=== PATIENT | female | born 1950 | race Caucasian/White ===

== ENCOUNTER 2019-05-20 14:51 | Inpatient (IN) | payer MEDICARE, BC ==
[~2019-05-20] VITALS: Ht 167.6 cm; Wt 90.1 kg
[2019-05-20 14:57] VITALS: BP 129/56
[2019-05-20] MEDS ORDERED: METFORMIN HCL500 MG PO (15:08)
[2019-05-20] MEDS ORDERED: NORVASC10 MG PO (15:09)
[2019-05-20] MEDS ORDERED: CELEXA40 MG PO (15:09)
[2019-05-20] MEDS ORDERED: TRAZODONE HCL100 MG PO (15:09)
[2019-05-20] MEDS ORDERED: LISINOPRIL40 MG PO (15:10)
[2019-05-20] MEDS ORDERED: ZOCOR20 MG PO (15:10)
[2019-05-20 16:13] LABS: ABSOLUTE EOSINOPHILS 0.1 thou/uL (0.0-0.7); ABSOLUTE LYMPHOCYTES 1.2 thou/uL (0.8-5.3); ABSOLUTE MONOCYTES 0.4 thou/uL (0.0-1.2); ABSOLUTE NEUTROPHILS 7.2 thou/uL (1.6-8.1); BASOPHILS 0.4 %; HEMATOCRIT 38.3 % (37.0-47.0); HEMOGLOBIN 12.6 gm/dL (12.0-15.0); LYMPHOCYTES 13.6 %; MCH 30.1 pg (26.0-34.0); MCV 91.1 fL (80.0-100.0); MPV 7.7 fl. (7.2-11.1); NUCLEATED RBCS 0 /100WBC; PLATELET COUNT* 258 thou/uL (150-400); RDW-CV 13.4 % (10.5-14.5)
[2019-05-20 16:19] LABS: CALCIUM 9.7 mg/dL (8.5-10.1); CREATININE 1.9 mg/dL (0.6-1.3); POTASSIUM 5.1 mmol/L (3.5-5.1)
[2019-05-20 16:24] LABS: ALBUMIN 3.9 g/dL (3.4-5.0); TOTAL BILIRUBIN 1.1 mg/dL (<0.1-1.0)
[2019-05-20 20:50] VITALS: BP 115/50
[2019-05-20 21:00] VITALS: BP 136/54
--- NOTE | 2019-05-21 00:47 | NUR ---
2100 ALERT AND ORIENTED X 4 FEMALE TO BED 114 FROM ER BY CART IN STABLE CONDITION. DENIES NAUSEA OR DIZZINESS ON ARRIVAL. IVF'S INFUSING PER PUMP LEFT AC. VITAL SIGNS STABLE. PATIENT ORIENTED TO BED AND ROOM, UNIT ROUTINES. PLAN OF CARE REVIEWED WITH PATIENT VERBALIZING UNDERSTANDING AND IN AGREEMENT. ADMISSION ROUTINES IN PROGRESS. CONTINUE TO MONITOR.
[2019-05-21 04:00] LABS: ABSOLUTE EOSINOPHILS 0.1 thou/uL (0.0-0.7); ABSOLUTE LYMPHOCYTES 1.6 thou/uL (0.8-5.3); ABSOLUTE MONOCYTES 0.4 thou/uL (0.0-1.2); ABSOLUTE NEUTROPHILS 3.6 thou/uL (1.6-8.1); BASOPHILS 0.8 %; EOSINOPHILS 2.2 %; HEMATOCRIT 31.8 % (37.0-47.0); LYMPHOCYTES 27.5 %; MCH 29.9 pg (26.0-34.0); MCHC 32.7 g/dL (28.0-37.0); MCV 91.4 fL (80.0-100.0); MONOCYTES 7.7 %; MPV 7.7 fl. (7.2-11.1); NUCLEATED RBCS 0 /100WBC; PLATELET COUNT* 207 thou/uL (150-400); POLYS 61.8 %; RBC 3.49 mil/uL (4.20-5.00); RDW-CV 13.4 % (10.5-14.5); WBC 5.8 thou/uL (4.0-11.0)
[2019-05-21 04:14] LABS: CALCIUM 8.8 mg/dL (8.5-10.1); CREATININE 1.5 mg/dL (0.6-1.3); HEMOGLOBIN 10.4 gm/dL (12.0-15.0); MAGNESIUM 1.8 mg/dL (1.8-2.4); PHOSPHORUS* 4.2 mg/dL (2.5-4.9); POTASSIUM 4.6 mmol/L (3.5-5.1)
--- NOTE | 2019-05-21 05:12 | NUR ---
PATIENT HAS REMAINED ALERT AND ORIENTED X 4 THROUGHOUT THE SHIFT AND RESTING QUIETLY ON HOURLY ROUNDS. UP TO BR WITH CGA AND GAIT BELT FOR SAFETY. DIZZINESS WHEN UP HAS IMPROVED. SCOPALAMINE PATCH AND IVF'S PER ORDER. REFUSED VALE VALIUM. VITAL SIGNS STABLE. CONTINUE TO MONITOR.
[2019-05-21 07:50] VITALS: BP 124/46
[2019-05-21 10:14] LABS: URINE BILIRUBIN NEGATIVE (Negative); URINE BLOOD NEGATIVE (Negative); URINE CLARITY CLEAR; URINE COLOR YELLOW; URINE GLUCOSE-RANDOM NEGATIVE (Negative); URINE KETONES NEGATIVE (Negative); URINE PROTEIN NEGATIVE (Negative); URINE UROBILINOGEN 0.2 E.U./dl (0.2-1.0)
[2019-05-21 10:18] LABS: URINE LEUKOCYTES-REFLEX 2+ (Negative); URINE NITRITE-REFLEX POSITIVE (Negative)
[2019-05-21 10:26] LABS: AMP/METHAMP Negative (Negative); BARBITURATES Negative (Negative); BENZODIAZEPINES Negative (Negative); COCAINE Negative (Negative); METHADONE Negative (Negative); OPIATES Negative (Negative); PCP Negative (Negative); THC Negative (Negative)
[2019-05-21 10:34] LABS: SQUAMOUS 4-10 Moderate /LPF (0-3)
[2019-05-21 10:35] LABS: URINE WBC-REFLEX >25 Many /HPF (0-5); WBC CLUMPS Few (None Seen)
[2019-05-21 10:36] LABS: BACTERIA-REFLEX >30 Many /HPF (None Seen); CASTS None Seen /LPF (None Seen); CRYSTALS None Seen /LPF (None Seen); MUCUS None Seen strn/LPF (None Seen); URINE RBC None Seen /HPF (0-2)
--- NOTE | 2019-05-21 10:51 | EKG ---
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
[2019-05-21 11:06] LABS: GLYCOHEMOGLOBIN (HGB A1C) 6.5 % (4.8-5.6)
--- NOTE | 2019-05-21 11:09 | NUR ---
MET WITH PT TO DISCUSS HOME SITUATION/DC PLANNING. PT LIVES WITH SPOUSE, IS NORMALLY INDEPENDENT AND ACTIVE. USES NO EQUIPMENT AND HASN'T HAD HH. PT PLANS TO RETURN HOME AT DC. DENIES NEEDS
--- NOTE | 2019-05-21 13:47 | NUR ---
PT ORDERS RECEIVED AND ACKNOWLEDGED. PT GETTING UP W/ NSG TO GO TO THE BATHROOM. PT DEMO INDEP TRANSFERS AND GAIT USING IV POLE ASSIST. PT RETURNS FROM TOILETING TO SEATED EOB INDEP. DISCUSSED HOME SITUATION. PT HAS NO STEPS TO ENTER HOME AND/OR INSIDE HOME. PT VOICES RESOLUTION OF DIZZINESS AND DOES NOT FEEL PT SERVICES ARE INDICATED AT THIS TIME. WILL DISCHARGE PT SERVICES.
[2019-05-21 16:45] VITALS: BP 125/43
--- NOTE | 2019-05-21 18:51 | NUR ---
PATIENT RESTING IN BED. PATIENT IS UP TO BATHROOM AD ROD. PATIENT DENIES ANY WEAKNESS OR DIZZINESS TODAY. PATIENT HAS GOOD APPETITE. PATIENT DENIES ANY PAIN. PATIENT DENIES ANY NEEDS AT THIS TIME. CALL LIGHT WITHIN REACH. WILL CONTINUE TO MONITOR.
[2019-05-21 20:00] VITALS: BP 111/48
[2019-05-22 03:36] LABS: ABSOLUTE EOSINOPHILS 0.2 thou/uL (0.0-0.7); ABSOLUTE LYMPHOCYTES 1.8 thou/uL (0.8-5.3); ABSOLUTE MONOCYTES 0.4 thou/uL (0.0-1.2); ABSOLUTE NEUTROPHILS 3.6 thou/uL (1.6-8.1); BASOPHILS 0.6 %; EOSINOPHILS 2.9 %; HEMATOCRIT 34.3 % (37.0-47.0); HEMOGLOBIN 11.3 gm/dL (12.0-15.0); LYMPHOCYTES 29.3 %; MCH 29.9 pg (26.0-34.0); MCHC 32.8 g/dL (28.0-37.0); MCV 91.3 fL (80.0-100.0); MONOCYTES 7.3 %; MPV 7.4 fl. (7.2-11.1); NUCLEATED RBCS 0 /100WBC; PLATELET COUNT* 229 thou/uL (150-400); POLYS 59.9 %; RBC 3.76 mil/uL (4.20-5.00); RDW-CV 13.4 % (10.5-14.5); WBC 6.1 thou/uL (4.0-11.0)
[2019-05-22 04:04] LABS: CALCIUM 9.1 mg/dL (8.5-10.1); CREATININE 1.3 mg/dL (0.6-1.3); POTASSIUM 5.1 mmol/L (3.5-5.1)
--- NOTE | 2019-05-22 06:53 | NUR ---
Alert and oriented x 4. She is up independently in the room after IV is unplugged. She denies pain or nausea. Vitals are stable. She has slept well.
[2019-05-22 08:00] VITALS: BP 122/58
[2019-05-22] MEDS ORDERED: THERA M PLUS T1 EAC2 PO (10:04)
[2019-05-22] MEDS ORDERED: TRANSDERM-SCOP1 EACH TRANSDERM (10:04)
[2019-05-22] MEDS ORDERED: CEFUROXIME250 MG PO (10:08)
[2019-05-22 11:33] VITALS: BP 122/58
--- NOTE | 2019-05-22 12:29 | NUR ---
CONTINUE TO FOLLOW, PT TO DC HOME TODAY. DECLINES HH, DO NOT ANTICIPATE PT WOULD BE HOMEBOUND TO QUALIFY. TALKED WITH HER ABOUT TAKING HER BP AND RECORDING IT AT HOME.
--- NOTE | 2019-05-22 12:59 | NUR ---
DISCHARGE NOTE - IV REMOVED WITHOUT DIFFICULTY. ALL BELONGINGS SENT WITH PT. NO QUESTIONS REGARDING DISCHARGE INSTRUCTIONS.
== END 2019-05-22 13:00 | disposition home or self-care (01) | DRG 683 ==
LOC: M.ERS 14:51 → M.TBA-ER 18:12 → M.ORTHSURG 18:12
PROVIDERS: Personal Emergency Response Attendant; ADMIT Family Medicine
DX: N17.9 Acute kidney failure, unspecified (principal); N39.0 Urinary tract infection, site not specified; H81.10 Benign paroxysmal vertigo, unspecified ear; E11.22 Type 2 diabetes mellitus with diabetic chronic kidney disease; N18.9 Chronic kidney disease, unspecified; I95.2 Hypotension due to drugs; I12.9 Hypertensive chronic kidney disease with stage 1 through stage 4 chronic kidney disease, or unspecified chronic kidney disease; T50.905A Adverse effect of unspecified drugs, medicaments and biological substances, initial encounter; R00.1 Bradycardia, unspecified; E86.9 Volume depletion, unspecified; Z90.10 Acquired absence of unspecified breast and nipple; Z90.49 Acquired absence of other specified parts of digestive tract; Z88.2 Allergy status to sulfonamides; Y92.89 Other specified places as the place of occurrence of the external cause; Z87.442 Personal history of urinary calculi

== ENCOUNTER 2021-01-04 12:04 | Emergency (ER) | payer MEDICARE, OTHER ==
[~2021-01-04] VITALS: Ht 162.6 cm; Wt 84.4 kg
[~2021-01-04 12:04] MED LIST: CEFUROXIME250 MG PO; CELEXA40 MG PO; LISINOPRIL40 MG PO; METFORMIN HCL500 MG PO; NORVASC10 MG PO; THERA M PLUS T1 EAC2 PO; TRANSDERM-SCOP1 EACH TRANSDERM; TRAZODONE HCL100 MG PO; ZOCOR20 MG PO
[2021-01-04] MEDS ORDERED: AMLODIPINE BESY10 MG PO (12:27)
[2021-01-04] MEDS ORDERED: LISINOPRIL10 MG PO (12:28)
[2021-01-04] MEDS ORDERED: BUPROPION XL300 MG PO (12:28)
[2021-01-04] MEDS ORDERED: ORADENT 0.1% DEN5 G1 TOP (12:29)
[2021-01-04 12:43] LABS: ABSOLUTE MONOCYTES 0.4 thou/uL (0.0-1.2); ABSOLUTE NEUTROPHILS 6.6 thou/uL (1.6-8.1); BASOPHILS 0.5 %; EOSINOPHILS 0.4 %; HEMATOCRIT 37.3 % (37.0-47.0); HEMOGLOBIN 12.3 gm/dL (12.0-15.0); MCH 30.6 pg (26.0-34.0); MCHC 32.8 g/dL (28.0-37.0); MCV 93.1 fL (80.0-100.0); MONOCYTES 4.4 %; MPV 7.9 fl. (7.2-11.1); NUCLEATED RBCS 0 /100WBC; PLATELET COUNT* 276 thou/uL (150-400); POLYS 81.7 %; RBC 4.01 mil/uL (4.20-5.00); RDW-CV 13.5 % (10.5-14.5); WBC 8.1 thou/uL (4.0-11.0)
[2021-01-04 12:46] LABS: URINE BLOOD NEGATIVE (Negative); URINE CLARITY CLEAR; URINE COLOR YELLOW; URINE GLUCOSE-RANDOM NEGATIVE (Negative); URINE KETONES TRACE (Negative); URINE LEUKOCYTES-REFLEX TRACE (Negative); URINE NITRITE-REFLEX NEGATIVE (Negative); URINE PROTEIN TRACE (Negative); URINE SPECIFIC GRAVITY >= 1.030 (1.005-1.030); URINE UROBILINOGEN 0.2 E.U./dl (0.2-1.0)
[2021-01-04 12:52] LABS: CALCIUM 9.6 mg/dL (8.5-10.1); CREATININE 1.5 mg/dL (0.6-1.3); POTASSIUM 5.1 mmol/L (3.5-5.1)
[2021-01-04 12:52] LABS: ICTOTEST (BILI CONFIRMATORY) Negative (Negative); URINE BILIRUBIN 1+ (Negative)
[2021-01-04 12:56] LABS: ALBUMIN 3.8 g/dL (3.4-5.0); TOTAL BILIRUBIN 0.6 mg/dL (<0.1-1.0); TOTAL PROTEIN 7.7 g/dL (6.4-8.2)
[2021-01-04 13:00] LABS: BACTERIA-REFLEX None Seen /HPF (None Seen); CASTS None Seen /LPF (None Seen); CRYSTALS None Seen /LPF (None Seen); MUCUS 4-6 Moderate strn/LPF (None Seen); RENAL EPITHELIAL CELLS 4-10 Moderate /LPF (None Seen); SQUAMOUS 4-10 Moderate /LPF (0-3); URINE RBC 0-2 Rare /HPF (0-2); URINE WBC-REFLEX 0-5 Rare /HPF (0-5)
[2021-01-04] MEDS ORDERED: ZOFRAN ODT4 MG PO (13:43)
[2021-01-04] MEDS ORDERED: PHENERGAN 25 MG25 M1 PO (14:16)
[2021-01-04] MEDS ORDERED: PROMS25 WY RECTAL (14:16)
--- NOTE | 2021-01-04 15:38 | EKG ---
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 01/04/21 1538 1243 1243 Edenilson Bhakta MD, [facility] /EPI
[2021-01-04 16:43] VITALS: BP 157/69
== END 2021-01-04 16:44 | disposition home or self-care (01) ==
LOC: M.ERS 12:04
PROVIDERS: Nurse Practitioner Family
DX: E86.0 Dehydration (principal); M25.561 Pain in right knee; K86.2 Cyst of pancreas; Z20.828 Contact with and (suspected) exposure to other viral communicable diseases; I13.10 Hypertensive heart and chronic kidney disease without heart failure, with stage 1 through stage 4 chronic kidney disease, or unspecified chronic kidney disease; E11.22 Type 2 diabetes mellitus with diabetic chronic kidney disease; N18.9 Chronic kidney disease, unspecified; Z88.2 Allergy status to sulfonamides; Z88.1 Allergy status to other antibiotic agents; Z90.49 Acquired absence of other specified parts of digestive tract; Z90.10 Acquired absence of unspecified breast and nipple; Z98.51 Tubal ligation status; Z87.442 Personal history of urinary calculi